=== PATIENT | female | born 2000 | race Caucasian/White ===

== ENCOUNTER 2018-01-21 17:29 | Emergency (ER) | payer OTHER ==
[~2018-01-21] VITALS: Ht 157.5 cm; Wt 54.4 kg
[2018-01-21 17:43] VITALS: BP 102/73
--- NOTE | 2018-01-21 19:35 | ED UPPER/LOWER EXTREMITY COMPL ---
History of Present Illness General Chief Complaint: Laceration Procedure Stated Complaint: R LEG LAC Source: patient, old records, friend Exam Limitations: no limitations Vital Signs & Intake/Output Vital Signs & Intake/Output Vital Signs Date Time Temp Pulse Resp B/P B/P Pulse O2 O2 Flow FiO2 Mean Ox Delivery Rate 01/21 2009 Room Air 01/21 1743 97.5 90 16 102/73 98 Room Air Room Air Allergies Coded Allergies: Penicillins (UNKNOWN 01/21/18) Triage Note: TRIAGE: 17 Y/O FEMALE PRESENTS C/O LAC TO RIGHT THIGH FROM GLASS THIS EVENING. ACTIVE BLEEDING NOTED IN TRIAGE - DRESSING APPLIED BY TIMBO MCDANIELS. UP TO DATE WITH TETANUS. Triage Nurses Notes Reviewed? yes Onset: Abrupt Duration: minute(s): (1), hour(s): (1), constant Timing: recent history Severity: moderate Severity Numbers: 5 Pain/Injury Location: Right: Leg. Method of Injury: laceration No Modifying Factors: none Associated Symptoms: denies : No Patient currently breastfeeds: No HPI: 17-year-old female presents to ER for evaluation status post sustaining laceration to her right side just prior to arrival when she accidentally cut on a piece of broken glass. She is up-to-date on tetanus. She denies any other injury she was not attempting to harm herself. No modifying factors or associated symptoms or numbness or tingling. (Zacarias Martell) Past History Travel History Traveled to [place] past 21 day No Medical History Any Pertinent Medical History? none Neurological: NONE EENT: NONE Cardiovascular: NONE Respiratory: NONE Gastrointestinal: NONE Hepatic: NONE Renal: NONE Musculoskeletal: NONE Psychiatric: NONE Endocrine: NONE Blood Disorders: NONE Cancer(s): NONE SACK CLEANING HAND/Reproductive: NONE Surgical History Surgical History: none Psychosocial History What is your primary language Icelandic Tobacco Use: Current Daily Use Daily Tobacco Use Amount/Type: => 5 Cigarettes daily ETOH Use: occasional use Illicit Drug Use: marijuana Family History Hx Contributory? No (Zacarias Martell) Review of Systems Review of Systems Constitutional: Reports: see HPI. Comments Review of systems: See HPI, All other systems negative. Constitutional, no chills no fever, no malaise no weight loss HEENT: no sore throat no congestion, no ear pain Cardiovascular: No chest pain , no palpitation Skin: no rashes, no change in skin Respiratory: No dyspnea no cough no sputum no hemoptysis GI: No nausea no vomiting, no diarrhea, no bloating/constipation : No dysuria No hematuria, no frequency Muscle skeletal: No joint pain, no back pain, no neck pain, Neurologic: , no headache Psych: No stress no depression,. Heme/endocrine: No bruising no bleeding Immunology: No lymphadenopathy (Zacarias Martell) Physical Exam Physical Exam General Appearance: well developed/nourished, no apparent distress, alert, awake Comments: Well-developed well-nourished patient in no apparent distress. HEENT: Atraumatic, extraocular motion intact Neck: Supple, FROM Back: FROM Respiratory: No respiratory distress. Patient speaking in full complete sentences. Breath sounds clear to auscultation bilaterally: NO W/R/R upper Extremities: full range of motion Hip/Pelvis: Atraumatic/Stable. FROM. Knee: Atraumatic/stable. FROM. No joint swelling Leg: See diagram No edema, 5 out of 5 strength in the lower extremity, normal dorsiflexion of great toe bilaterally, gross sensation is intact Ankle/Foot: Atraumatic/stable. Skin intact. FROM. No swelling, no effusion. No laxity on exam Pulses: Normal/equal DP/PT pulses bilaterally. Brisk cap refill Neuro: awake, alert, and oriented to person, place and time. There were no obvious focal neurologic abnormalities. Skin: Warm & dry;No appreciable rash on exposed skin Psych: Mood affect normal, normal memory normal judgment. Diagram Legs Front/Back 1) 2.5 cm superficial linear laceration noted there is no visualized or palpated foreign body (Zacarias Martell) Progress Differential Diagnosis: cellulitis, sprain, tendon injury Plan of Care: Wound thoroughly irrigated with normal saline Betadine peroxide. Anesthetized with lidocaine 1% 3-0 x 10 sutures placed by myself patient tolerated well and I discussed with her the possibility of foreign body not seen on examination so exists return precautions were discussed at length she feels comfortable plan she'll return in 7-10 days for suture removal. (Zacarias Martell) Departure Departure Time of Disposition: 2013 Disposition: HOME OR SELF CARE Condition: Stable Clinical Impression Primary Impression: Laceration Referrals: Ruben KAT,Nicola Conklin (PCP/Family) Additional Instructions: Keep area clean and covered as discussed, bacitracin daily. Return to ER in 7- 10 days for suture removal. If the wound becomes red, swollen, increasingly more painful or if there is any drainage from the wound, please have it reevaluated by a physician for the possibility of a retained foreign body. Departure Forms: Customer Survey General Discharge Information (Horace IZQUIERDO,Zacarias) PA/LITERACY TUTOR Co-Sign Statement Statement: ED Attending supervision documentation- [] I saw and evaluated the patient. I have also reviewed all the pertinent lab results and diagnostic results. I agree with the findings and the plan of care as documented in the PA's/LITERACY TUTOR's documentation. [X] I have reviewed the ED Record and agree with the PA's/LITERACY TUTOR's documentation. [] Additions or exceptions (if any) to the PAs/LITERACY TUTOR's note and plan are summarized below: [] (Amada KAT,Jarad Velarde)
== END 2018-01-21 20:47 ==
LOC: ERH 17:29
DX: S71.111A Laceration without foreign body, right thigh, initial encounter (principal); W25.XXXA Contact with sharp glass, initial encounter; Y92.9 Unspecified place or not applicable; Y93.9 Activity, unspecified